=== PATIENT | male | born 1960 | race Caucasian/White ===

== ENCOUNTER 2016-09-21 07:59 | Emergency (ER) | payer MEDICARE ==
[~2016-09-21 07:59] MED LIST: Proparacaine 0.5% Opth 15 ML BOT ONE
== END 2016-09-21 08:45 | disposition home or self-care (01) ==
LOC: MADERS 07:59
DX: Z03.89 Encounter for observation for other suspected diseases and conditions ruled out (principal); I10 Essential (primary) hypertension; F17.210 Nicotine dependence, cigarettes, uncomplicated; Z79.899 Other long term (current) drug therapy
CPT/HCPCS: 99283

== ENCOUNTER 2017-10-16 09:40 | Emergency (ER) | payer MEDICARE ==
[~2017-10-16 09:40] MED LIST changes: +Donnatal Elixir 16.2 MG/5 ML UDCUP ONE; -Proparacaine 0.5% Opth 15 ML BOT ONE
[2017-10-16] MEDS ORDERED: Mag-Al Plus 1200 MG/1200 MG/120 MG/30 ML UDCUP ONE (10:24)
[2017-10-16] MEDS ORDERED: Donnatal Elixir 16.2 MG/5 ML UDCUP ONE (10:24)
[2017-10-16] MEDS ORDERED: Lidocaine Viscous Sol 2% 15 ml UD Cup ONE (10:24)
[2017-10-16 10:56] LABS: #Basophils 0.1 thou/uL (0.0-0.2); #Eosinphils 0.1 thou/uL (0.0-0.7); #Lymphocytes 2.2 thou/uL (1.20-3.40); #Monocytes 0.5 thou/uL (0.11-0.59); #Neutrophils 4.6 thou/uL (1.40-6.50); %Basophils 1.1 % (0.0-1.0); %Eosinophils 1.5 % (0.0-10.0); %Monocytes 7.2 % (0.0-10.0); %Neutrophils 61.2 % (42.0-75.0); Hemoglobin 16.6 g/dL (14.0-18.0); Mean Corpuscular HGB CONC 35.1 g/dL (32.0-36.0); Mean Corpuscular Hemoglobin 30.6 pg (27.0-31.0); Mean Corpuscular Volume 87.1 fL (78.0-98.0); Mean Platelet Volume 6.3 fL (7.4-10.4); Platelet Count 245 thou/uL (130-400); RBC Distribution Width 10.6 % (11.5-14.5); Red Blood Cell (RBC) Count 5.42 mill/uL (4.70-6.10); White Blood Cell (WBC) Count 7.5 thou/uL (4.8-10.8)
[2017-10-16 10:59] LABS: Bilirubin Negative (Negative); Blood, Urine Trace (Negative); Clarity Clear (Clear); Glucose, Urine (Dipstick) Negative (Negative); Leukocyte Negative (Negative); Nitrite Negative (Negative); Protein, Urine (Dipstick) Negative (Neg-Trace); Specific Gravity, Urine 1.015 (1.005-1.030); Urobilinogen 0.2 mg/dL (0.2-1.0); pH, Urine 5.5 (5.0-9.0)
[2017-10-16 11:04] LABS: RBC/HPF 0-3 HPF (0-3)
[2017-10-16 11:05] LABS: Bacteria/HPF Rare-Few HPF (None Seen); Squamous Epithelial 0-3 HPF (0-3); WBC/HPF 0-3 HPF (0-3)
[2017-10-16 11:15] LABS: ALT (SGPT) 24 U/L (8-55); AST (SGOT) 19 U/L (5-34); Albumin 4.1 g/dL (3.5-5.0); Alkaline Phosphatase 63 U/L (40-150); Anion Gap 16 mmol/L (10-20); BUN (Urea Nitrogen) 11 mg/dL (8.4-25.7); Bilirubin, Total 1.2 mg/dL (0.2-1.2); Calc. Creatinine Clearance 0 mL/min (70-130); Calcium 8.8 mg/dL (7.8-10.44); Carbon Dioxide 26 mmol/L (22-29); Chloride 102 mmol/L (98-107); Estimated GFR-MDRD Greater than 90; Glucose 98 mg/dL (70-105); Lipase 61 U/L (8-78); Potassium 4.4 mmol/L (3.5-5.1); Protein, Total 7.1 g/dL (6.0-8.3); Sodium 140 mmol/L (136-145)
== END 2017-10-16 12:05 | disposition home or self-care (01) ==
LOC: MADERS 09:40
DX: K29.00 Acute gastritis without bleeding (principal); K59.00 Constipation, unspecified; I10 Essential (primary) hypertension; F17.210 Nicotine dependence, cigarettes, uncomplicated
CPT/HCPCS: 80053; 81001; 82150; 83690; 85025; 87086; 99284

== ENCOUNTER 2018-09-11 14:41 | Emergency (ER) | payer MEDICARE ==
--- NOTE | 2018-09-11 15:36 | RAD ---
Chest one view HISTORY: Dyspnea. COMPARISON: None available. FINDINGS: Cardiac silhouette is magnified by projection. Pulmonary vasculature are unremarkable. Mild widespread reticulonodular interstitial prominence. No lobar consolidation or evidence of pneumothorax. IMPRESSION: Possible widespread fine reticular/nodular interstitial prominence. In the setting of dys pnea, interstitial disease must be considered. Please consider follow-up with upright PA and lateral views of the chest in full inspiration.
--- NOTE | 2018-09-11 16:47 | CT ---
CT chest noncontrast HISTORY: Dyspnea. Abnormal chest radiograph. FINDINGS: Lungs are well-inflated. Airways are patent. No interstitial thickening. No consolidation, mass, pleural fluid, or pneumothorax. Lack of contrast limits evaluation of the soft tissues. No bulky mediastinal adenopathy. IMPRESSION: No lung parenchymal abnormalities or other significant abnormalities are demonstrated.
== END 2018-09-11 17:27 | disposition home or self-care (01) ==
LOC: MADERS 14:41
DX: J20.9 Acute bronchitis, unspecified (principal); I10 Essential (primary) hypertension; F17.210 Nicotine dependence, cigarettes, uncomplicated; Z79.1 Long term (current) use of non-steroidal anti-inflammatories (NSAID); Z79.899 Other long term (current) drug therapy
CPT/HCPCS: 71045; 71250; 93005; J7620

== ENCOUNTER 2023-06-05 11:55 | Emergency (ER) | payer MEDICARE ==
[2023-06-05] MEDS ORDERED: Lidocaine 1% w/Epinephrine 1:100K 20 ML VIAL ONE (12:18)
[2023-06-05] MEDS ORDERED: Bacitracin 1 PK ONE (12:59)
== END 2023-06-05 13:00 | disposition home or self-care (01) ==
LOC: MADERS 11:55
DX: S51.811A Laceration without foreign body of right forearm, initial encounter (principal); W26.8XXA Contact with other sharp object(s), not elsewhere classified, initial encounter
CPT/HCPCS: 12002; 99282

== ENCOUNTER 2025-04-14 20:57 | Emergency (ER) | payer MEDICARE, MEDICAID ==
[2025-04-14] MEDS ORDERED: Fluorescein Opthalmic Strip ONE (21:00)
[2025-04-14] MEDS ORDERED: Tetracaine 0.5% PF 4 ML BOT ONE (21:01)
== END 2025-04-14 21:51 | disposition home or self-care (01) ==
LOC: MADERS 20:57
DX: T15.02XA Foreign body in cornea, left eye, initial encounter (principal); I10 Essential (primary) hypertension; F17.210 Nicotine dependence, cigarettes, uncomplicated; Z79.899 Other long term (current) drug therapy; W44.8XXA Other foreign body entering into or through a natural orifice, initial encounter
CPT/HCPCS: 65222; 99283